=== PATIENT | male | born 2000 | race Caucasian/White ===

== ENCOUNTER 2021-10-21 10:56 | Emergency (ER) | payer OTHER, BC, SELFPAY ==
[2021-10-21 11:06] VITALS: TEMP 36.2; BMI 26.1
--- NOTE | 2021-10-21 11:35 | ED_ITS ---
HPI - General Adult General Chief complaint: Extremity Pain/Injury, Upper Stated complaint: Left arm injury Time Seen by Provider: 10/21/21 11:18 History of Present Illness HPI narrative: 20-year-old male coming in today complaining of injury to the left forearm. He states that a pipe fell on his arm at work. He denies any other injury. Last tetanus shot was in 2011. Review of Systems Narrative: Denies any other injury [facility] Social History Smoking Status: Current some day smoker What tobacco products do you use: cigarettes Do you use any of these nicotine containing products: None Second hand tobacco smoke exposure: No How often do you have a drink containing alcohol: 2-4 times a month How many standard drinks containing alcohol do you have on a typical day: 1 or 2 How often do you have six or more drinks on one occasion: Never AUDIT-C Alcohol total score: 2 Non-prescribed substance use: denies use service: No Exam Narrative: Exam Narrative: Well-nourished well-developed patient in no acute distress. Alert and oriented. Answers questions appropriately. Mood and affect are appropriate. HEENT: Normocephalic atraumatic. Pupils are equally round reactive to light. Extraocular muscles are intact. Conjunctivae are moist without any icterus noted. Extremities: Left forearm patient has a semi [place] laceration that goes through the dermis into the subcutaneous tissue. Does not penetrate to the muscle. It is essentially a small flap, approximate 1.5 cm from end-to-end. Const: Vital Signs, click to edit/add: Vital Signs - 24 hr 10/21/21 11:06 Temperature 97.2 F L Course Course Hospital Course: Wound was irrigated by nursing. Anesthesia was provided with 1% lidocaine, 2 mL was given. The wound was then explored by me and cleaned with wound cleanser. Four interrupted sutures with 3-0 Ethilon were applied with great skin approximation and patient tolerated the procedure well without complications. Vital Signs Vital signs: Initial Vital Signs Temperature 97.2 F L 10/21/21 11:06 Temperature Source Temporal Artery Scan 10/21/21 11:06 Oxygen Delivery Method 10/21/21 11:06 Vital Signs Temperature 97.2 F L 10/21/21 11:06 Temperature 97.2 F L 10/21/21 11:06 Medical Decision Making MDM Narrative Medical decision making narrative: Laceration clean and sutured in the ED today. We discussed wound hygiene, signs and symptoms of infection, reasons to return to clinic and scarring. We discussed suture removal in 7-10 days. Patient was agreeable with everything we discussed had no other questions. We also updated his tetanus shot today. Discharge Plan Discharge Clinical Impression: Laceration Patient Disposition: Home, Self-Care Condition: Improved Additional Instructions: Keep wound clean and dry. Okay to shower like he normally would but do not soak it such as swimming or taking baths. Watch for signs of infection which include increasing redness around the wound were draining of pus from the wound- see your doctor right away if this occurs. Have your sutures removed in 7-10 days in the clinic. Stand Alone Forms: [employer] Info Instructions
[2021-10-21] MEDS: TETANUS/DIPHTH/PERTUSSIS 0.5 ML SYRINGE IM (11:38)
== END 2021-10-21 12:29 | disposition home or self-care (01) ==
LOC: ED 12:05
PROVIDERS: Emergency Provider Family Medicine
DX: S51.812A Laceration without foreign body of left forearm, initial encounter (principal); W26.9XXA Contact with unspecified sharp object(s), initial encounter
CPT/HCPCS: 12001; 90471; 90715; 99283